=== PATIENT | female | born 1970 | race Caucasian/White ===

== ENCOUNTER 2017-12-19 09:24 | Emergency (ER) | payer OTHER ==
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
[2017-12-19] MEDS ORDERED: HYDROmorphONE/DILAUDID 1 MG/ML INJ ONE (09:43)
[2017-12-19] MEDS ORDERED: ONDANSETRON 4 MG/2 ML VIAL ONE (09:46)
[2017-12-19] MEDS ORDERED: ONDANSETRON 4 MG/2 ML VIAL IVP ONE (09:49)
[2017-12-19] MEDS ORDERED: NS 1,000 ML IV ONE (09:49)
[2017-12-19] MEDS: HYDROmorphONE/DILAUDID 2 MG/ML INJ IVP ONE ×2 (10:06→11:42)
[2017-12-19 13:22] VITALS: BP 114/80
== END 2017-12-19 13:43 | disposition home or self-care (01) ==
DX: S42.212A Unspecified displaced fracture of surgical neck of left humerus, initial encounter for closed fracture (principal); V18.4XXA Pedal cycle driver injured in noncollision transport accident in traffic accident, initial encounter; Y92.410 Unspecified street and highway as the place of occurrence of the external cause; Y99.8 Other external cause status; Y93.55 Activity, bike riding
CPT/HCPCS: 96374; J1170; J2405